=== PATIENT | female | born 1995 | race Caucasian/White ===

== ENCOUNTER 2016-12-21 11:44 | Emergency (ER) | payer OTHER | END 2016-12-21 12:52 | disposition left against medical advice (07) | LOC: ER 12:41 | DX: R11.10 Vomiting, unspecified (principal); Z53.21 Procedure and treatment not carried out due to patient leaving prior to being seen by health care provider ==

== ENCOUNTER 2017-07-02 22:07 | Observation (INO) | payer OTHER ==
[~2017-07-02] VITALS: Ht 167.6 cm; Wt 78.0 kg
[2017-07-02] MEDS: LACTATED RINGERS 1,000 ML IV SCH ×2 (23:56→23:57)
== END 2017-07-03 00:55 | disposition home or self-care (01) ==
LOC: L&D 22:07
PROVIDERS: ADMIT Obstetrics & Gynecology; ATTEND Obstetrics & Gynecology
DX: O26.893 Other specified pregnancy related conditions, third trimester (principal); R51 Headache; Z3A.35 35 weeks gestation of pregnancy
CPT/HCPCS: 76805; 76818; 96360; G0378; J7120; 99281

== ENCOUNTER 2017-07-03 01:06 | Emergency (ER) | payer OTHER ==
[~2017-07-03] VITALS: Ht 167.6 cm; Wt 79.0 kg
[2017-07-03] MEDS ORDERED: BALANCED SALT IRRIG SOLN 15ML IO ONE (01:45)
[2017-07-03] MEDS ORDERED: FLUORESCEIN SODIUM 1MG/STRIP OP ONE (01:45)
[2017-07-03] MEDS ORDERED: TETRACAINE 0.5% OPHTH DROPS 4ML OP ONE (01:45)
[2017-07-03 02:03] LABS: HCG SCREEN POSITIVE
[2017-07-03 05:45] VITALS: BP 101/62
[2017-07-03] MEDS ORDERED: ACETAMINOPHEN 325MG TABLET PO ONE (05:45)
== END 2017-07-03 06:02 | disposition home or self-care (01) ==
LOC: ER 01:06
DX: O9A.213 Injury, poisoning and certain other consequences of external causes complicating pregnancy, third trimester (principal); S00.12XA Contusion of left eyelid and periocular area, initial encounter; O99.513 Diseases of the respiratory system complicating pregnancy, third trimester; Y08.89XA Assault by other specified means, initial encounter; Y93.89 Activity, other specified; Y92.89 Other specified places as the place of occurrence of the external cause; Y99.8 Other external cause status; Z3A.35 35 weeks gestation of pregnancy
CPT/HCPCS: 70450; 70486; 84703; 99285